=== PATIENT | female | born 1990 | race Caucasian/White ===

== ENCOUNTER 2017-03-27 17:11 | Emergency (ER) | payer OTHER ==
[2017-03-27 17:23] VITALS: BP 116/68; PULSE 65; TEMP 99.3; BMI 27.4
--- NOTE | 2017-03-27 17:23 | PDOC ---
Rapid Medical Evaluation Time Seen by Provider: 03/27/17 17:18 Medical Evaluation: 03/27/17 17:18 pt states she is 4 weeks with light vaginal bleeding started 6 hrs ago color is brownish red. Pt has lower abd cramping 3/10 no back pain . Pt has history of one ectopic and one regular . followed at [address] [place] [address].
[2017-03-27 18:41] LABS: BASO % 0.1 % (0-2.0); EOS % 0.4 % (0-4.5); HEMATOCRIT 40.9 % (32.4-45.2); HEMOGLOBIN 13.8 GM/dL (10.7-15.3); LYMPH % 23.3 % (8-40); MCH 30.4 pg (25.7-33.7); MCHC 33.9 g/dl (32.0-36.0); MEAN CELL VOLUME 89.7 fl (80-96); MEAN PLT VOLUME 8.5 fl (7.5-11.1); MONO % 4.2 % (3.8-10.2); PLATELET COUNT 228 K/MM3 (134-434); RBC 4.56 M/mm3 (3.60-5.2); WHITE BLOOD COUNT 9.4 K/mm3 (4.0-10.0)
[2017-03-27 18:46] LABS: HCG,QUALITATIVE URINE POSITIVE; URINE APPEARANCE CLEAR; URINE BILIRUBIN NEGATIVE (NEGATIVE); URINE BLOOD 1+ (NEGATIVE); URINE COLOR STRAW; URINE GLUCOSE (UA) NEGATIVE (NEGATIVE); URINE KETONE NEGATIVE (NEGATIVE); URINE LEUK ESTERASE NEGATIVE (NEGATIVE); URINE NITRITE NEGATIVE (NEGATIVE); URINE PROTEIN NEGATIVE (NEGATIVE); URINE UROBILINOGEN NEGATIVE mg/dL (0.2-1.0)
[2017-03-27 18:52] LABS: EPI CELLS RARE /HPF (FEW); URINE BACTERIA RARE /hpf (NONE SEEN); URINE MUCUS RARE
[2017-03-27 19:12] LABS: ALBUMIN 4.1 g/dl (3.4-5.0); ANION GAP 9 (8-16); BLOOD UREA NITROGEN 11 mg/dL (7-18); CALCIUM 8.5 mg/dL (8.5-10.1); CHLORIDE 102 mmol/L (98-107); CO2 26 mmol/L (21-32); CREATININE 0.5 mg/dL (0.55-1.02); GLUCOSE,RANDOM 80 mg/dL (74-106); POTASSIUM 3.5 mmol/L (3.5-5.1); SGOT/AST 8 U/L (15-37); SGPT/ALT 18 U/L (12-78); SODIUM 137 mmol/L (136-145)
[2017-03-27 19:29] LABS: ALK PHOS 68 U/L (45-117); BILIRUBIN,TOTAL 0.4 mg/dL (0.2-1.0); TOT PROT 7.9 g/dl (6.4-8.2)
--- NOTE | 2017-03-27 22:23 | PDOC ---
History of Present Illness <Nicole Talavera - Last Filed: 03/27/17 22:18> - General History Source: Patient Exam Limitations: No Limitations - History of Present Illness Initial Comments: 03/27/17 22:37 The patient is a 4 weeks 27 year old female , with a significant past medical history of ectopic approx. 6 years ago, who presents to the emergency department with vaginal spotting beginning approx 10 hours ago. The patient reports she was at her NUCLEAR OFFICER Dr. Madisyn Hunt earlier today around 12pm for her first check up when she noticed the vaginal spotting. The patient reports the blood was initially a very dark color but after appeared to be bright red. The patient reports only minimal blood present. The patient reports her OB Dr. Madisyn Hunt advised her to come to the ED for further evaluation. She denies recent abdominal cramping or vaginal discharge. She denies recent dysuria or frequency. She denies recent chest pain or shortness of breath. She denies recent nausea, vomiting, diarrhea or constipation. She denies recent fever, chills, headache or dizziness. Allergies: NKA Past surgical history: <Allen Sharpe - Last Filed: 03/27/17 22:49> - General Chief Complaint: Vaginal Bleeding Stated Complaint: VAGINAL BLEEDING/4 WKS Time Seen by Provider: 03/27/17 17:18 Past History - Past Medical History COPD: No Other medical history: DENIES. - Suicide/Smoking/Psychosocial Hx Smoking History: Never smoked <Nicole Talavera - Last Filed: 03/27/17 22:18> <Allen Sharpe - Last Filed: 03/27/17 22:49> - Past Medical History Allergies/Adverse Reactions: Allergies Allergy/AdvReac Type Severity Reaction Status Date / Time No Known Allergies Allergy Verified 03/27/17 17:18 Review of Systems - Review of Systems Comments:: 03/27/17 22:44 GENERAL/CONSTITUTIONAL: No fever or chills. No weakness. HEAD, EYES, EARS, NOSE AND THROAT: No change in vision. No ear pain or discharge. No sore throat. CARDIOVASCULAR: No chest pain or shortness of breath. RESPIRATORY: No cough, wheezing, or hemoptysis. GASTROINTESTINAL: No nausea, vomiting, diarrhea or constipation. GENITOURINARY: +Vaginal spotting. No dysuria, frequency, or change in urination. MUSCULOSKELETAL: No joint or muscle swelling or pain. No neck or back pain. SKIN: No rash NEUROLOGIC: No headache, vertigo, loss of consciousness, or change in strength/ sensation. ENDOCRINE: No increased thirst. No abnormal weight change. HEMATOLOGIC/LYMPHATIC: No anemia, easy bleeding, or history of blood clots. ALLERGIC/IMMUNOLOGIC: No hives or skin allergy. <Allen Sharpe - Last Filed: 03/27/17 22:49> *Physical Exam - Vital Signs Last Vital Signs Temp Pulse Resp BP Pulse Ox 99.3 F 65 19 116/68 100 03/27/17 17:19 03/27/17 17:19 03/27/17 17:19 03/27/17 17:19 03/27/17 17:19 <Nicole Talavera - Last Filed: 03/27/17 22:18> - Vital Signs Last Vital Signs Temp Pulse Resp BP Pulse Ox 99.3 F 65 19 116/68 100 03/27/17 17:19 03/27/17 17:19 03/27/17 17:19 03/27/17 17:19 03/27/17 17:19 - Physical Exam Comments: 03/27/17 22:44 GENERAL: Awake, alert, and fully oriented, in no acute distress HEAD: No signs of trauma EYES: PERRLA, EOMI, sclera anicteric, conjunctiva clear ENT: Auricles normal inspection, hearing grossly normal, nares patent, oropharynx clear without exudates. Moist mucosa NECK: Normal ROM, supple, no lymphadenopathy, JVD, or masses LUNGS: Breath sounds equal, clear to auscultation bilaterally. No wheezes, and no crackles HEART: Regular rate and rhythm, normal S1 and S2, no murmurs, rubs or gallops PELVIC: No adnexal tenderness, no bleeding. ABDOMEN: Soft, nontender, normoactive bowel sounds. No guarding, no rebound. No masses EXTREMITIES: Normal range of motion, no edema. No clubbing or cyanosis. No cords, erythema, or tenderness NEUROLOGICAL: Cranial nerves II through XII grossly intact. Normal speech, normal gait SKIN: Warm, Dry, normal turgor, no rashes or lesions noted. <Allen Sharpe - Last Filed: 03/27/17 22:49> ED Treatment Course - LABORATORY CBC & Chemistry Diagram: 03/27/17 18:02 03/27/17 18:02 - ADDITIONAL ORDERS Additional order review: Laboratory Results 03/27/17 03/27/17 03/27/17 18:09 18:02 17:23 Sodium 137 Potassium 3.5 Chloride 102 Carbon Dioxide 26 Anion Gap 9 BUN 11 Creatinine 0.5 L Creat Clearance w eGFR > 60 Random Glucose 80 Calcium 8.5 Total Bilirubin 0.4 AST 8 L ALT 18 Alkaline Phosphatase 68 Total Protein 7.9 Albumin 4.1 Beta HCG, Quant 45074.2 Urine Color Straw Urine Appearance Clear Urine pH 6.0 Ur Specific [place] 1.005 Urine Protein Negative Urine Glucose (UA) Negative Urine Ketones Negative Urine Blood 1+ H Urine Nitrite Negative Urine Bilirubin Negative Urine Urobilinogen Negative Ur Leukocyte Esterase Negative Urine WBC (Auto) 2 Urine RBC (Auto) 1 Ur Epithelial Cells Rare Urine Bacteria Rare Urine Mucus Rare Urine HCG, Qual Positive Blood Type O POSITIVE Antibody Screen Negative 03/27/17 18:02 RBC 4.56 MCV 89.7 MCHC 33.9 RDW 12.0 MPV 8.5 Neutrophils % 72.0 Lymphocytes % 23.3 Monocytes % 4.2 Eosinophils % 0.4 Basophils % 0.1 <Nicole Talavera - Last Filed: 03/27/17 22:18> - LABORATORY CBC & Chemistry Diagram: 03/27/17 18:02 03/27/17 18:02 - ADDITIONAL ORDERS Additional order review: Laboratory Results 03/27/17 03/27/17 03/27/17 18:09 18:02 17:23 Sodium 137 Potassium 3.5 Chloride 102 Carbon Dioxide 26 Anion Gap 9 BUN 11 Creatinine 0.5 L Creat Clearance w eGFR > 60 Random Glucose 80 Calcium 8.5 Total Bilirubin 0.4 AST 8 L ALT 18 Alkaline Phosphatase 68 Total Protein 7.9 Albumin 4.1 Beta HCG, Quant 35646.2 Urine Color Straw Urine Appearance Clear Urine pH 6.0 Ur Specific [place] 1.005 Urine Protein Negative Urine Glucose (UA) Negative Urine Ketones Negative Urine Blood 1+ H Urine Nitrite Negative Urine Bilirubin Negative Urine Urobilinogen Negative Ur Leukocyte Esterase Negative Urine WBC (Auto) 2 Urine RBC (Auto) 1 Ur Epithelial Cells Rare Urine Bacteria Rare Urine Mucus Rare Urine HCG, Qual Positive Blood Type O POSITIVE Antibody Screen Negative 03/27/17 18:02 RBC 4.56 MCV 89.7 MCHC 33.9 RDW 12.0 MPV 8.5 Neutrophils % 72.0 Lymphocytes % 23.3 Monocytes % 4.2 Eosinophils % 0.4 Basophils % 0.1 <Allen Sharpe - Last Filed: 03/27/17 22:49> Medical Decision Making - Medical Decision Making 03/27/17 22:18 a/p: 27yo female with vaginal spotting today - 4 weeks -sent in [facility] for eval of vag bleeding in the first trimester - -hx of ectopic preg in the past -no vaginal discharge -no pelvic pain -vag spotting when she wipes -will check labs, ultrasound -pelvic exam - os closed, no cmt or adnexal ttp, no blood in the vault <Nicole Talavera - Last Filed: 03/27/17 22:18> *DC/Admit/Observation/Transfer - Discharge Dispostion Admit: No - Attestations Physician Attestion: 03/27/17 22:22 I, Dr. Nicole Talavera DO, attest that this document has been prepared under my direction and personally reviewed by me in its entirety. I further attest, that it accurately reflects all work, treatment, procedures and medical decision -making performed by me. <Nicole Talavera - Last Filed: 03/27/17 22:18> - Attestations Scribe Attestion: 03/27/17 22:46 Documentation prepared by Allen Sharpe, acting as medical billing service for Nicole Talavera DO. <Allen Sharpe - Last Filed: 03/27/17 22:49> Diagnosis at time of Disposition: Subchorionic hematoma in first trimester, Vaginal bleeding affecting early - Discharge Dispostion Disposition: HOME Condition at time of disposition: Stable - Referrals Referrals: Madisyn Hunt MD [Certified Nurse Fixed Route Bus Operator] - - Patient Instructions Printed Discharge Instructions: DI for Vaginal Bleeding During Additional Instructions: Please continue to take vitamins. Please have your beta hcg repeated in 2 days (friday). Please return to the ED with any further concerns. Please return to the ED if you start to bleed through more than 2 pads per hour for more than 2 hours. Please follow up with your NUCLEAR OFFICER.
== END 2017-03-27 22:33 | disposition home or self-care (01) ==
LOC: JER 17:11
DX: O26.891 Other specified pregnancy related conditions, first trimester (principal); O46.8X1 Other antepartum hemorrhage, first trimester; Z3A.01 Less than 8 weeks gestation of pregnancy
CPT/HCPCS: 36415; 76817-TC; 80053; 81003; 81015; 84702; 84703; 85025; 86850; 86900; 86901; 99283-25

== ENCOUNTER 2017-10-30 06:27 | Inpatient (IN) | payer OTHER ==
[2017-10-30] MEDS ORDERED: CITRIC ACID/SODIUM CITRATE 30 ML UNIT-DOSE CUP PO ONE (06:30)
[2017-10-30] MEDS ORDERED: ELECTROLYTE-148 SOLN 500 ML IV SCH (06:30)
[2017-10-30] MEDS ORDERED: ELECTROLYTE-148 SOLN 1,000 ML IV SCH ×2 (07:00→08:27)
[2017-10-30] MEDS ORDERED: OXYTOCIN 20 UNITS in 0.9% NS 20 UNIT/1,000 ML INFUS.BAG IV ONE ×2 (07:41→10:29)
[2017-10-30] MEDS ORDERED: morphine SULFATE/Preservative Free 0.5 MG/ML (1cc Syringe) ONE (07:44)
[2017-10-30] MEDS ORDERED: PHENYLEPHRINE HCL 10 MG/1 ML SINGLE DOSE VIAL ONE (07:44)
[2017-10-30 07:53] VITALS: BMI 31.1
[2017-10-30] MEDS ORDERED: ELECTROLYTE-148 SOLN 500 ML IV ONE (07:58)
--- NOTE | 2017-10-30 08:09 | HP ---
Past Medical History - Primary Care Physician PCP:: Mira Arora - Admission Chief Complaint: 27 yrs , ectopic -1 , 39.5 weeks, previous c/section requets for repeat c/section History of Present Illness: care at , [facility] .wt gain 11 lbs panel : 04/02/17 : O pos, Rpr nr, Hbsag neg, Rubella pos, Sickle neg, Hiv neg, CF screen neg Pap nilm, gc/ct neg Quantiferon neg, 1 hr Gtt 73, 10/09/17 Gbs neg, gc/ct neg, Hiv neg pt followed with MFM for serial sonograms for growth, , NT screen & modified Sequential neg History Source: Patient, Medical Record Limitations to Obtaining History: No Limitations - Past Medical History TENDER LABOR: No: Migraine, Seizure Cardiovascular: No: HTN, Murmur Pulmonary: No: Asthma Gastrointestinal: Yes: Hemorrhoids. No: Gastritis ...: 3 ...Para: 1 (02/20/2014 LFTC/Sec due to failed induction 40.4 wks, 8'4" boy) ...Term: 1 ...: 0 ...Spon : 1 (Ectopic pregn , Right salpingectomy ) ...Induced : 0 ...Multiple Gestation: 0 ...LMP: 01/15/17 ... Weeks Gestation by Dates: 39.5 ...EDC by Dates: 11/01/17 ...EDC by Sono: 11/01/17 - Past Surgical History Past Surgical History: Yes: (02/20/2014 Primary LFTC/Sec 8'4" [facility]) Hx Myomectomy: No Hx Transabdominal Cerclage: No Additional Surgical History: 2010, expl lap for Ectopic pregn, Rt Salpingectomy in [place] - Smoking History Smoking history: Never smoked Have you smoked in the past 12 months: No - Alcohol/Substance Use Hx Alcohol Use: No History of Substance Use: reports: None Home Medications - Allergies Allergies/Adverse Reactions: Allergies Allergy/AdvReac Type Severity Reaction Status Date / Time strawberry Allergy Intermediate Hives Verified 10/30/17 06:49 - Home Medications Home Medications: Ambulatory Orders Ferrous Sulfate [Iron] 325 mg PO DAILY 10/30/17 Vitamins (Sjr) - 1 tab PO DAILY 10/30/17 Physical Exam - Maternity Vital Signs: Vital Signs Temperature 98.9 F 10/30/17 07:15 Pulse Rate 61 10/30/17 07:15 Respiratory Rate 18 10/30/17 07:15 Blood Pressure 127/72 10/30/17 07:15 O2 Sat by Pulse Oximetry (%) Constitutional: Yes: Well Nourished, No Distress Eyes: Yes: WNL HENT: Yes: WNL, Normocephalic Neck: Yes: WNL Cardiovascular: Yes: WNL, Regular Rate and Rhythm Lungs: Clear to auscultation Breast(s): Yes: WNL - Abdominal Exam/OB Fundal Height: 38 Number of Fetuses: Single Presentation: Vertex Contractions: No Monitor Mode: External Heart Rate (range): 130 Heart Rate Location: Midline Category: I Accelerations: Uniform Decelerations: None - Vaginal Exam/OB Vaginal Bleediing: No Dilatation (cm): close Effacement (%): unefface Amniotic Membrane Status: Intact Presentation: Vertex/Position Station: -3 - Physical Exam Musculoskeletal: Yes: WNL Extremities: Yes: WNL. No: Calf Tenderness Edema: Yes Edema: LLE: 1+, RLE: 1+ Integumentary: Yes: Incision (subumblical midline scar & pfannensteil scar) Deep Tendon Reflex Grade: Normal +2 ...Motor Strength: WNL Psychiatric: Yes: WNL, Alert, Oriented - Labs Lab Results: Laboratory Tests 10/29/17 10/29/17 10/29/17 09:00 09:00 09:00 WBC 6.7 Hgb 13.1 Hct 39.0 Plt Count 158 D Neutrophils % 66.2 Lymphocytes % 26.4 PT with INR 10.90 INR 0.96 Sodium 140 Potassium 3.9 Chloride 106 Carbon Dioxide 23 BUN 8 Creatinine 0.6 Random Glucose 81 Calcium 8.4 L Total Bilirubin 0.2 AST 18 ALT 21 RPR Titer 10/29/17 09:00 WBC Hgb Hct Plt Count Neutrophils % Lymphocytes % PT with INR INR Sodium Potassium Chloride Carbon Dioxide BUN Creatinine Random Glucose Calcium Total Bilirubin AST ALT RPR Titer Nonreactive Problem List - Problems (1) 39 weeks gestation of Code(s): Z3A.39 - 39 WEEKS GESTATION OF (2) Previous section Code(s): Z98.891 - HISTORY OF UTERINE SCAR FROM PREVIOUS SURGERY Assessment/Plan 27 yrs , ectopic -1 , previous c/secion 39.5 weeks requests for repeat c/ section Plan Repeat c/section
[2017-10-30] MEDS ORDERED: IBUPROFEN 800 MG/8 ML IJ IVPB PRN (09:44)
[2017-10-30] MEDS ORDERED: METHYLERGONOVINE MALEATE 0.2 MG/1 ML AMP IM PRN (09:44)
[2017-10-30] MEDS ORDERED: OXYTOCIN 20 UNITS in 0.9% NS 20 UNIT/1,000 ML INFUS.BAG IV SCH (09:45)
--- NOTE | 2017-10-30 10:04 | PN ---
Delivery - Delivery Section: Repeat, Low Flap Transverse (Indication 39.5 weeks, previous c /section) Type of Anesthesia: Spinal EBL (cc): 1,000 (selby output 250 ml rowan color ) Delivery, Single - Stages of Labor Date of Delivery: 10/30/17 Time of Delivery: 08:38 Time Placenta Delivered: 08:39 Placenta: Yes: Manual Removal, Uterine Exploration (pitocin 40 iu in 1000 ml Nsaline given intraop) - Condition of Entry Level Staff Accountant/Protection Specialist Present: Yes Name: Ariana Crocker Infant Gender: Male Weight: 8 lb 14 oz Position: Left, OT Total Hours ROM (Hrs/Mins): 0/2 - 1 Minute Total Score: 9 5 Minutes Total Score: 9 - [place] Feeding Plan Initial Plan: Elected not to breastfeed exclusively throughout hospitalization Remarks - Remarks Remarks: 27 yrs , ectopic -1 , previous c/section , 39.5 weeks , gbs neg pnc at 2, [place] care intraop course uneventful. 2 gm iv Ancef pre incision was given
[2017-10-30] MEDS ORDERED: ONDANSETRON 4 MG/2 ML VIAL IVPUSH PRN (10:07)
--- NOTE | 2017-10-30 10:10 | OP ---
Operative Note - Note: Operative Date: 10/30/17 Pre-Operative Diagnosis: 39.5 weeks,previous c/section , not in labor Operation: Repeat LFTC/section Findings: 8.38 AM, Baby Boy, vx, LOT position, 9/9 Wt 8'14" Rt side s/p lateral salpingectomy for ectopic . Left tube normal. Both ovaries normal Dr Crocker Engineer Intern present in OR Surgeon: Mira Arora Bar Welder: Goran Regalado Anesthesiologist/LABORER WRECKING AND SALVAGING: Miryam Gonsalez Anesthesia: Spinal Specimens Removed: placenta Estimated Blood Loss (mls): 1,000 (40 iu pitocin in Nsaline 1000 ml ) Drains, Volume Out (mls): 250 (selby outpot rowan color ) Fluid Volume Replaced (mls): 700 (iv Ancef 2 gm ivpb prior to inciision) Operative Report Dictated: Yes
[2017-10-30] MEDS ORDERED: LACTATED RINGERS SOLUTION 1,000 ML IV SCH (10:15)
--- NOTE | 2017-10-30 10:54 | OP ---
DATE OF OPERATION: 10/30/2017 PREOPERATIVE DIAGNOSIS: At 39.5 weeks, previous section, not in labor. OPERATION: Repeat low-flap transverse section. SURGEON: Mira Arora MD HIDE TANNER SURGEON: MITRA Pepper ANESTHESIOLOGIST: Miryam Gonsalez MD ANESTHESIA: Spinal. FINDINGS: This is a 27-year-old, 3, para 1-0-0-1, ectopic 1. She has history of a previous in 2013 and ectopic , exploratory laparotomy, right salpingectomy in 2010. Patient requests for a repeat C- section, and she was not in labor. Postop baby boy, Apgars 9 and 9, weight 8 pounds 14 ounces. PROCEDURE: Patient was taken to the operating room table. The abdomen was shaved, prepped. Camacho catheter was placed. SCD stockings were in situ. She was given spinal anesthesia and placed in supine position. Abdomen was painted and draped in usual manner. She had 1 subumbilical midline scar and 1 Pfannenstiel scar. Incision was made through previous Pfannenstiel scar transversely. Skin, subcutaneous tissue, anterior rectus sheath was incised transversely. Bleeding sites were clamped and cauterized. Rectus muscle was from the rectus sheath. Parietal peritoneum was opened vertically. Lower flap of the bladder peritoneum was incised transversely. The bladder was pushed down. Lower uterine segment was isolated, and it was incised transversely. Baby was delivered at 8:38 a.m. from LOT position, Apgars 9 and 9. Baby's weight was 8 pounds 14 ounces. The baby was handed over to the fire protection fabricator, Dr. Crocker. Before that, cord was clamped, cut. Cord blood was collected. Placenta was removed completely with the membranes. Uterine cavity was clean. Then, the uterine incision was closed in 2 layers. First layer was a continuous locking with a Biosyn 0 suture. Second layer was closed with a continuous intermittently locking with a Biosyn 0 suture. Hemostasis was verified, and then, the bladder peritoneum also was closed with interrupted sutures with Biosyn 0 suture. Right side tube was status post ectopic ,Lateral salpingectomy was seen, and left tube was normal, and both ovaries were normal. Irrigation was done. Sponge, instrument, and needle count was correct, and then, the closure of the abdomen was done. Parietal peritoneum was closed with Vicryl 0 suture. Muscles were approximated together with a Vicryl 0 suture. Interrupted sutures were taken. Hemostasis was checked underneath the rectus sheath flaps. Then, anterior rectus sheath was closed with 0 Vicryl suture. Hemostasis was verified. The skin was mobilized from underneath scar. The subcutaneous tissue was closed with interrupted 0 Vicryl sutures, and then, the skin was approximated with pasha. Pressure dressing was given. Blood clots were removed from the vagina. Estimated blood loss was 1000 mL, and IV 2 g of Ancef were given prior to the incision. The iv fluid solution was 700 mL, and she was given 40 units Pitocin intraoperatively into the IV fluid. She was transferred to the recovery room in stable condition. Justice [id number] MTDD
[2017-10-30] MEDS ORDERED: CEFAZOLIN 1 GM in DEXTROSE 5%-WATER - 50 ML IVPB SCH (16:00)
[2017-10-30] MEDS ORDERED: DEXTROSE 5%-WATER - 50 ML IVPB ONE (16:15)
[2017-10-30] MEDS ORDERED: ceFAZolin SODIUM 1 GM VIAL ONE (16:16)
[2017-10-30] MEDS: CEFAZOLIN 1 GM in DEXTROSE 5%-WATER - 50 ML IVPB SCH (17:36)
[2017-10-31] MEDS ORDERED: ceFAZolin SODIUM 1 GM VIAL ONE ×2 (00:29→08:13)
[2017-10-31] MEDS ORDERED: DEXTROSE 5%-WATER - 50 ML IVPB ONE ×2 (00:29→08:13)
[2017-10-31] MEDS: CEFAZOLIN 1 GM in DEXTROSE 5%-WATER - 50 ML IVPB SCH ×2 (00:33→08:20)
[2017-10-31] MEDS: ACETAMINOPHEN 325 MG TABLET (FP) PO PRN ×3 (06:18→20:17)
[2017-10-31] MEDS: IBUPROFEN 600 MG TABLET (FP) PO PRN ×3 (06:18→20:16)
[2017-10-31] MEDS: SIMETHICONE 80 MG TAB.CHEW (FP) PO PRN ×3 (06:18→20:15)
--- NOTE | 2017-10-31 07:07 | PN ---
Progress Note (short form) - Note Progress Note: pod 1 doing well,no c/o , no excess vaginal bleeding Last Vital Signs Temp Pulse Resp BP Pulse Ox 98.6 F 73 18 94/52 99 10/31/17 06:00 10/31/17 06:00 10/31/17 06:00 10/31/17 06:00 10/30/17 10:50 abdomen soft, no distension, no cva incision dry. clean Camacho clear urine no calf tenderness plan ambulate , cbc , advance diet
[2017-10-31 08:03] LABS: BASO % 0.4 % (0-2.0); EOS % 0.3 % (0-4.5); HEMATOCRIT 34.4 % (32.4-45.2); HEMOGLOBIN 11.8 GM/dL (10.7-15.3); MCH 30.8 pg (25.7-33.7); MCHC 34.2 g/dl (32.0-36.0); MEAN CELL VOLUME 89.9 fl (80-96); MEAN PLT VOLUME 9.3 fl (7.5-11.1); NEUT % 73.3 % (42.8-82.8); PLATELET COUNT 141 K/MM3 (134-434); RBC 3.83 M/mm3 (3.60-5.2); RDW 15.1 % (11.6-15.6); WHITE BLOOD COUNT 9.2 K/mm3 (4.0-10.0)
--- NOTE | 2017-10-31 08:20 | PN ---
Progress Note (short form) - Note Progress Note: Post op day#1.S/P C Section under spinal anesthesia with duramorph uneventful.Patient stable and has little pain for which she is on medication.No any anesthesia related problem.Patient Dc from the anesthesia care.
[2017-10-31] MEDS ORDERED: oxyCODONE HCL 5 MG TABLET PO PRN (09:44)
[2017-10-31] MEDS ORDERED: BISACODYL 10 MG SUPP.RECT RC PRN (09:45)
[2017-10-31] MEDS: ENOXAPARIN NA (PORCINE) 40 MG/0.4 ML DISP.SYRIN SQ SCH (09:50)
[2017-10-31] MEDS: PRENATAL VITAMINS W/ FOLIC ACID TABLET (FP) PO SCH (09:52)
[2017-10-31] MEDS: FERROUS SO4 325 MG TABLET (FP) PO SCH (16:58)
[2017-10-31] MEDS: SENNOSIDES/DOCUSATE COMBO (SENNA PLUS) TABLET (UD) PO PRN (20:15)
[2017-11-01] MEDS: oxyCODONE HCL 5 MG TABLET PO PRN ×3 (02:00→21:36)
[2017-11-01] MEDS: SIMETHICONE 80 MG TAB.CHEW (FP) PO PRN ×3 (02:00→21:35)
[2017-11-01] MEDS: IBUPROFEN 600 MG TABLET (FP) PO PRN ×3 (02:00→21:36)
[2017-11-01] MEDS: FERROUS SO4 325 MG TABLET (FP) PO SCH ×2 (08:12→17:19)
--- NOTE | 2017-11-01 08:25 | PN ---
Post Progress Note - Subjective Subjective: c/o pain scale 6-7/10 sometimes voiding without difficulty bm done Post Day: 2 Type of Delivery: Repeat C/S Vital Signs: Vital Signs Temperature 98.5 F 10/31/17 22:00 Pulse Rate 73 10/31/17 22:00 Respiratory Rate 18 10/31/17 22:00 Blood Pressure 115/60 10/31/17 22:00 O2 Sat by Pulse Oximetry (%) 99 10/30/17 10:50 Breast Exam: Yes: Soft, Other (BF ). No: Engorged Uterus: Yes: Fundus Firm, Fundus below umbilicus, Non-tender Incision: Yes: Christen intact. No: Redness, Oozing Abdomen/GI: Yes: Abdomen soft, Passing flatus, Tolerating PO (diet). No: Abdominal Distention, Tender Lochia: Yes: Rubra Lochia, amount: Moderate Extremities: Yes: Calves non-tender, Edema Perineum: Yes: Intact Activity: Ambulating - Labs Labs: CBC WBC 9.2 K/mm3 (4.0-10.0) 10/31/17 07:45 RBC 3.83 M/mm3 (3.60-5.2) 10/31/17 07:45 Hgb 11.8 GM/dL (10.7-15.3) 10/31/17 07:45 Hct 34.4 % (32.4-45.2) 10/31/17 07:45 MCV 89.9 fl (80-96) 10/31/17 07:45 MCH 30.8 pg (25.7-33.7) 10/31/17 07:45 MCHC 34.2 g/dl (32.0-36.0) 10/31/17 07:45 RDW 15.1 % (11.6-15.6) 10/31/17 07:45 Plt Count 141 K/MM3 (134-434) 10/31/17 07:45 MPV 9.3 fl (7.5-11.1) 10/31/17 07:45 Absolute Neuts (auto) 6.8 K/mm3 (1.5-8.0) 10/31/17 07:45 Neutrophils % 73.3 % (42.8-82.8) 10/31/17 07:45 Lymphocytes % 19.0 % (8-40) D 10/31/17 07:45 Monocytes % 7.0 % (3.8-10.2) 10/31/17 07:45 Eosinophils % 0.3 % (0-4.5) 10/31/17 07:45 Basophils % 0.4 % (0-2.0) 10/31/17 07:45 Nucleated RBC % 0 % (0-0) 10/31/17 07:45 Problem List - Problems (1) 39 weeks gestation of Code(s): Z3A.39 - 39 WEEKS GESTATION OF (2) Previous section Code(s): Z98.891 - HISTORY OF UTERINE SCAR FROM PREVIOUS SURGERY (3) Status post section routine follow-up Code(s): Z39.2 - ENCOUNTER FOR ROUTINE FOLLOW-UP; Z98.891 - HISTORY OF UTERINE SCAR FROM PREVIOUS SURGERY Assessment/Plan stable plan encourage ambulation, po fluids , deep breathing
[2017-11-01] MEDS: PRENATAL VITAMINS W/ FOLIC ACID TABLET (FP) PO SCH (09:29)
[2017-11-01] MEDS: ENOXAPARIN NA (PORCINE) 40 MG/0.4 ML DISP.SYRIN SQ SCH (09:29)
[2017-11-01] MEDS: SENNOSIDES/DOCUSATE COMBO (SENNA PLUS) TABLET (UD) PO PRN (21:35)
[2017-11-02] MEDS: FERROUS SO4 325 MG TABLET (FP) PO SCH ×2 (08:05→17:21)
[2017-11-02 08:20] LABS: BASO % 0.3 % (0-2.0); HEMATOCRIT 32.6 % (32.4-45.2); LYMPH % 32.1 % (8-40); MCH 30.6 pg (25.7-33.7); MCHC 33.8 g/dl (32.0-36.0); MEAN CELL VOLUME 90.3 fl (80-96); MEAN PLT VOLUME 8.7 fl (7.5-11.1); MONO % 6.6 % (3.8-10.2); PLATELET COUNT 160 K/MM3 (134-434); RBC 3.61 M/mm3 (3.60-5.2); RDW 14.9 % (11.6-15.6); WHITE BLOOD COUNT 6.7 K/mm3 (4.0-10.0)
--- NOTE | 2017-11-02 09:40 | PN ---
Post Progress Note - Subjective Subjective: no complains pain scale today 4/10 . voiding without difficulty bm done Post Day: 3 Type of Delivery: Repeat C/S Vital Signs: Vital Signs Temperature 98.5 F 11/02/17 08:26 Pulse Rate 56 L 11/02/17 08:26 Respiratory Rate 20 11/02/17 08:26 Blood Pressure 90/54 11/02/17 08:26 O2 Sat by Pulse Oximetry (%) 99 10/30/17 10:50 Breast Exam: Yes: Soft, Other (BF ). No: Engorged Uterus: Yes: Fundus Firm, Fundus below umbilicus, Non-tender Incision: Yes: Pasha intact. No: Redness, Oozing Abdomen/GI: Yes: Abdomen soft, Passing flatus, Tolerating PO (diet). No: Abdominal Distention, Tender Lochia: Yes: Rubra Lochia, amount: Small Extremities: Yes: Calves non-tender Perineum: Yes: Intact Activity: Ambulating - Labs Labs: CBC WBC 6.7 K/mm3 (4.0-10.0) 11/02/17 07:45 RBC 3.61 M/mm3 (3.60-5.2) 11/02/17 07:45 Hgb 11.0 GM/dL (10.7-15.3) 11/02/17 07:45 Hct 32.6 % (32.4-45.2) 11/02/17 07:45 MCV 90.3 fl (80-96) 11/02/17 07:45 MCH 30.6 pg (25.7-33.7) 11/02/17 07:45 MCHC 33.8 g/dl (32.0-36.0) 11/02/17 07:45 RDW 14.9 % (11.6-15.6) 11/02/17 07:45 Plt Count 160 K/MM3 (134-434) 11/02/17 07:45 MPV 8.7 fl (7.5-11.1) 11/02/17 07:45 Absolute Neuts (auto) 4.0 K/mm3 (1.5-8.0) 11/02/17 07:45 Neutrophils % 59.0 % (42.8-82.8) 11/02/17 07:45 Lymphocytes % 32.1 % (8-40) D 11/02/17 07:45 Monocytes % 6.6 % (3.8-10.2) 11/02/17 07:45 Eosinophils % 2.0 % (0-4.5) D 11/02/17 07:45 Basophils % 0.3 % (0-2.0) 11/02/17 07:45 Nucleated RBC % 0 % (0-0) 11/02/17 07:45 Problem List - Problems (1) 39 weeks gestation of Code(s): Z3A.39 - 39 WEEKS GESTATION OF (2) Previous section Code(s): Z98.891 - HISTORY OF UTERINE SCAR FROM PREVIOUS SURGERY (3) Status post section routine follow-up Code(s): Z39.2 - ENCOUNTER FOR ROUTINE FOLLOW-UP; Z98.891 - HISTORY OF UTERINE SCAR FROM PREVIOUS SURGERY Assessment/Plan stable plan remove pasha tomorrow. discharge tomorrow.
[2017-11-02] MEDS: ENOXAPARIN NA (PORCINE) 40 MG/0.4 ML DISP.SYRIN SQ SCH (09:52)
[2017-11-02] MEDS: PRENATAL VITAMINS W/ FOLIC ACID TABLET (FP) PO SCH (09:52)
[2017-11-02] MEDS: IBUPROFEN 600 MG TABLET (FP) PO PRN ×2 (09:56→21:35)
[2017-11-02] MEDS: oxyCODONE HCL 5 MG TABLET PO PRN ×2 (09:56→21:36)
[2017-11-02] MEDS: SIMETHICONE 80 MG TAB.CHEW (FP) PO PRN ×2 (09:56→21:35)
[2017-11-02] MEDS: SENNOSIDES/DOCUSATE COMBO (SENNA PLUS) TABLET (UD) PO PRN (21:35)
[2017-11-03] MEDS: oxyCODONE HCL 5 MG TABLET PO PRN (05:04)
[2017-11-03] MEDS: SIMETHICONE 80 MG TAB.CHEW (FP) PO PRN (05:04)
[2017-11-03] MEDS: IBUPROFEN 600 MG TABLET (FP) PO PRN ×2 (05:05→09:39)
[2017-11-03 07:37] VITALS: BP 103/55; PULSE 60; TEMP 98.1
[2017-11-03] MEDS: FERROUS SO4 325 MG TABLET (FP) PO SCH (09:38)
[2017-11-03] MEDS: PRENATAL VITAMINS W/ FOLIC ACID TABLET (FP) PO SCH (09:38)
[2017-11-03] MEDS: ENOXAPARIN NA (PORCINE) 40 MG/0.4 ML DISP.SYRIN SQ SCH (09:39)
[2017-11-03] MEDS: ACETAMINOPHEN 325 MG TABLET (FP) PO PRN (09:39)
--- NOTE | 2017-11-03 09:46 | DS ---
Physical Exam-PILL MAKER Vital Signs: Vital Signs Temperature 98.1 F 11/03/17 07:36 Pulse Rate 60 11/03/17 07:36 Respiratory Rate 20 11/03/17 07:36 Blood Pressure 103/55 11/03/17 07:36 O2 Sat by Pulse Oximetry (%) 99 10/30/17 10:50 Constitutional: Yes: Well Nourished, No Distress, Other (sometimes pain scale 8/ 10) Eyes: Yes: WNL HENT: Yes: WNL Neck: Yes: WNL Cardiovascular: Yes: WNL Respiratory: Yes: WNL Gastrointestinal: Yes: WNL, Normal Bowel Sounds, Soft, Abdomen, Obese, Other ( BM done). No: Distention Renal/: Yes: WNL. No: CVA Tenderness - Right, Hematuria ....Post : Yes: Uterus firm, Uterus non-tender, Moderate lochia rubra ( perineum intact) Breast(s): Yes: WNL (BF), Other (not engorged) Musculoskeletal: Yes: WNL Extremities: Yes: WNL. No: Calf Tenderness Edema: Yes Edema: LLE: 1+, RLE: 1+ Integumentary: Yes: WNL Wound/Incision: Yes: Clean/Dry, Well Approximated, Steri Strips, Two Buttes Removed. No: Draining, Reddened, Bleeding, Excoriated Neurological: Yes: WNL, Alert, Oriented ...Motor Strength: WNL Psychiatric: Yes: WNL, Alert, Oriented Labs: CBC, BMP 11/02/17 07:45 Delivery - Delivery Section: Repeat, Low Flap Transverse (Indication 39.5 weeks, previous c /section) Type of Anesthesia: Spinal EBL (cc): 1,000 (selby output 250 ml rowan color ) Delivery, Single - Stages of Labor Date of Delivery: 10/30/17 Time of Delivery: 08:38 Time Placenta Delivered: 08:39 Placenta: Yes: Manual Removal, Uterine Exploration (pitocin 40 iu in 1000 ml Nsaline given intraop) - Condition of Dye Jig Operator/Anthropology Faculty Member Present: Yes Name: Ariana Crocker Infant Gender: Male Weight: 8 lb 14 oz Position: Left, OT Total Hours ROM (Hrs/Mins): 0/2 - 1 Minute Total Score: 9 5 Minutes Total Score: 9 - Feeding Plan Initial Plan: Elected not to breastfeed exclusively throughout hospitalization Remarks - Remarks Remarks: 27 yrs , ectopic -1 , previous c/section , 39.5 weeks , gbs neg pnc at 2, [facility] intraop course uneventful. 2 gm iv Ancef pre incision was given . pp course uneventful discharge today f/u in the clinic 1 week Discharge Summary Reason For Visit: SCHEDULED C/SECTION Current Active Problems 39 weeks gestation of (Acute) Previous section (Acute) Status post section routine follow-up (Acute) Condition: Stable - Instructions Diet, Activity, Other Instructions: Post Instructions DIET: Continue good diet high in protein, calcium, and iron rich foods. Drink at least eight (8) glasses of water daily in addition to other fluids. ct Regular diet MEDICATIONS: Continue vitamins and iron as previously directed. Motrin and Tylenol may be taken for minor discomfort. ACTIVITY: Mild to moderate exercise may be started in two (2) weeks. Take frequent rest periods. Resume normal activity after six (6) week check up. WOUND CARE OF OPERATIVE SITE: Continue use of perineal bottle until vaginal discharge stops. Keep area clean. Shower daily. Keep abdominal wound dry. Report any drainage or redness to physician. Tub baths, tampons and douches are not permitted for [address] Breast feeding & or Bottle feeding BREAST CARE: (For those that are not ): If engorgement occurs: Wear tight fitting bra. Take Tylenol or Motrin for pain. Apply cold packs (ice in bags to each breast ) FAMILY PLANNING: There are many control alternatives to pursue and they should be discussed at your first office visit. You may resume sexual activity after your six (6) week check up. (Remember, breast feeding is not a contraceptive) NEXT PHYSICIAN APPOINTMENT: Be certain to call for a one (1) week appointment, unless otherwise directed. Wound Check Call Clinic or got to Emergency Dept if you have any of the following: Heavy vaginal bleeding Painful urination Leg pain Unusual odor noted to vaginal bleeding High fever Red streaking noted on breast Referrals: Mira Arora MD [Staff Physician] - Disposition: HOME - Home Medications Comprehensive Discharge Medication List: Ambulatory Orders Ferrous Sulfate [Iron] 325 mg PO DAILY 10/30/17 Vitamins (Sjr) - 1 tab PO DAILY 10/30/17 Acetaminophen [Tylenol .Regular Strength -] 500 mg PO Q4H PRN #30 tablet Ferrous Sulfate [Feosol] 325 mg PO BIDWM tab 11/02/17 Ibuprofen [Motrin -] 600 mg PO Q4H PRN #30 tablet 11/02/17 Vitamins (Sjr) - 1 tab PO DAILY tablet 11/02/17 Acetaminophen [Tylenol] 500 mg PO QID #30 capsule 11/03/17 Ibuprofen [Motrin -] 600 mg PO QID PRN #30 tablet 11/03/17
--- NOTE | 2017-11-04 18:03 | PATH ---
Surgical Pathology Report Patient Name: SANDRA FRANCIS [facility]. Rec. #: [id number] /Age/Gender: 1990 (Age: 27) / F Account: [id number] Location: [facility] OBS/RN SOCIAL SERVICES Taken: 10/30/2017 Received: 10/31/2017 Reported: 11/04/2017 Physicians: Mira Arora M.D. Specimen(s) Received PLACENTA Clinical History , 39.5 weeks for repeat Final Diagnosis PLACENTA: THIRD TRIMESTER PLACENTA. TRIVASCULAR CORD. MEMBRANES WITH NO DIAGNOSTIC ABNORMALITIES. Electronically Signed Cecilia Pickett M.D. Gross Description The specimen is received fresh labeled placenta and is a 549 gram, 17.0 x 16.5 x 2.3 cm. placenta with attached membranes and umbilical cord. The attached membranes are rosas, translucent with focal opacities and insert marginally. The umbilical cord measures 30 cm. in length and averages 1.4 cm. in diameter. The cord inserts eccentrically, 4.5 cm. to the nearest margin. No true knots or strictures are identified. Cut surface of the umbilical cord reveals 3 vessels. The surface is loera-blue with minimal fibrin deposition and appropriate caliber vessels. The maternal surface is red-brown with focal defects. Sectioning reveals red-brown, spongy parenchyma. No lesions are identified. Machine Finisher sections are submitted in three cassettes as follows: 1- membrane rolls and umbilical cord; 2-3- full thickness sections of placenta 10/31/2017 [facility]10/31/2017
== END 2017-11-03 12:26 | disposition home or self-care (01) | DRG 540 ==
LOC: JLDR 06:27 → J3W 11:37
PROVIDERS: ADMIT Obstetrics & Gynecology; ATTEND Obstetrics & Gynecology
PROC: 10D00Z1 Extraction of Products of Conception, Low, Open Approach (ICD-10-PCS; principal; 2017-10-30)
DX: O34.211 Maternal care for low transverse scar from previous cesarean delivery (principal); Z3A.39 39 weeks gestation of pregnancy; Z37.0 Single live birth
CPT/HCPCS: 36415; 85025; 88307-TC; 94010

== ENCOUNTER 2021-01-20 13:32 | Emergency (ER) | payer OTHER ==
[2021-01-20 13:57] VITALS: BP 104/65; PULSE 66; TEMP 98.5; BMI 29.8
[2021-01-20] MEDS ORDERED: KETOROLAC TROMETHAMINE 30 MG/1 ML VIAL IM ONE (15:24)
[2021-01-20] MEDS ORDERED: KETOROLAC TROMETHAMINE 30 MG/1 ML VIAL ONE (15:28)
[2021-01-20] MEDS ORDERED: LIDOCAINE 5% TOPICAL PATCH TP ONE (15:29)
[2021-01-20] MEDS ORDERED: LIDOCAINE 5% TOPICAL PATCH ONE (15:41)
[2021-01-20] MEDS ORDERED: LIDOCAINE PATCH REMOVAL MC SCH (22:00)
== END 2021-01-20 15:53 | disposition home or self-care (01) ==
LOC: JER 13:32
PROC: 3E0233Z Introduction of Anti-inflammatory into Muscle, Percutaneous Approach (ICD-10-PCS; principal; 2021-01-20)
DX: S89.91XA Unspecified injury of right lower leg, initial encounter (principal); X50.0XXA Overexertion from strenuous movement or load, initial encounter; Y93.01 Activity, walking, marching and hiking
CPT/HCPCS: 73562-TC-RT-FY; 99284-25